=== PATIENT | male | born 1960 | race Caucasian/White ===

== ENCOUNTER 2018-10-13 02:52 | Emergency (ER) | payer OTHER ==
[~2018-10-13] VITALS: Ht 177.8 cm; Wt 77.1 kg
[2018-10-13] MEDS ORDERED: KETOROLAC TROMETHAMINE INJ 30 MG/ML VIAL IV ONE (04:00)
[2018-10-13] MEDS ORDERED: IV NS 0.9% 1,000 ML BAG IV ONE (04:00)
[2018-10-13] MEDS ORDERED: MORPHINE SULFATE INJ 2 MG/ML DISP.SYRIN IV ONE (04:00)
[2018-10-13] MEDS ORDERED: ONDANSETRON HCL/PF 4 MG/2 ML VIAL IVP ONE (04:00)
[2018-10-13] MEDS ORDERED: MORPHINE SULFATE INJ 4 MG/ML DISP.SYRIN ONE (04:10)
[2018-10-13] MEDS ORDERED: ONDANSETRON HCL/PF 4 MG/2 ML VIAL ONE (04:10)
[2018-10-13] MEDS ORDERED: KETOROLAC TROMETHAMINE 15 MG/ML VIAL ONE (04:10)
--- NOTE | 2018-10-13 04:10 | NUR ---
PT BIBSELF COMPLAINING OF ABDOMINAL PAIN WITH NAUSEA AND VOMITTING. PT DENIES CHEST PAIN, SOB, HEADACHE, DIZZINESS. PT IS AAOX4. RESPIRATIONS EVEN AND UNLABORED. SKIN WARM AND INTACT. NO ACUTE DISTRESS NOTED AT THIS TIME. PT AMBULATORY TO ER BED 9
--- NOTE | 2018-10-13 04:11 | NUR ---
IV INITIATED LEFT AC 18G. LABS DRAWN FROM SITE. CARE TECH AT BEDSIDE FOR COLLECTION. IV INTACT AND PATENT
[2018-10-13 04:14] LABS: BASOPHILS % (AUTO) 0.2 % (0.0-2.0); EOSINOPHILS % (AUTO) 0.7 % (0.0-6.0); HEMATOCRIT 44 % (39-51); LYMPHOCYTES # (AUTO) 1.8 /CMM (0.8-4.8); MEAN CORPUSCULAR HGB CONC 34 g/dl (31.0-36.0); MEAN CORPUSCULAR VOLUME 97 fL (80-96); MONOCYTES # (AUTO) 0.7 /CMM (0.1-1.30); NEUTROPHILS # (AUTO) 8.6 /CMM (1.8-8.9); NEUTROPHILS % (AUTO) 77.1 % (43.0-81.0); PLATELET COUNT (AUTO) 200 /CMM (150-450); RED BLOOD CELL COUNT(AUTO) 4.59 MIL/uL (4.5-6.0); WHITE BLOOD COUNT (AUTO) 11.2 K/uL (4.3-11.0)
--- NOTE | 2018-10-13 04:15 | NUR ---
RADIOLOGY AT BEDSIDE FOR CXR
[2018-10-13 04:21] LABS: CALCIUM, SERUM 9.3 mg/dL (8.5-10.1); CREATININE 1.2 mg/dL (0.6-1.3)
[2018-10-13 04:27] LABS: BILIRUBIN,DIRECT 0.1 mg/dL (0.0-0.2); BILIRUBIN,TOTAL 0.5 mg/dL (0.2-1.0); TOTAL PROTEIN, SERUM 7.5 g/dL (6.4-8.2)
--- NOTE | 2018-10-13 05:08 | NUR ---
Kain elena in [facility] - 10/13/18 at 0509 by JAMILA URINE COLLECTED CALLED LAB FOR
--- NOTE | 2018-10-13 05:09 | NUR ---
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
[2018-10-13 05:28] LABS: APPEARANCE,URINE CLEAR (CLEAR); BILIRUBIN,URINE NEGATIVE (NEGATIVE); BLOOD, URINE 3+ Ery/uL (NEGATIVE); COLOR,URINE YELLOW (YELLOW); KETONES,URINE NEGATIVE (NEGATIVE); LEUKOCYTE ESTERASE ,URINE NEGATIVE (NEGATIVE); NITRITE, URINE NEGATIVE (NEGATIVE); PROTEIN,URINE NEGATIVE (NEGATIVE); UGLUCOSE NEGATIVE (NEGATIVE); UROBILINOGEN,URINE 0.2 EU/dL (0.2)
--- NOTE | 2018-10-13 05:35 | NUR ---
PT BROUGHT BY RADIOLOGY FOR CT
--- NOTE | 2018-10-13 05:48 | NUR ---
PT RETURNED FROM CT
[2018-10-13 06:04] LABS: BACTERIA,URINE None seen /HPF (None Seen); RBC,URINE 21-50 /HPF (0-2); SQUAMOUS EPITHELIAL CELL,UR Few /HPF (None Seen); WBC,URINE 0-2 /HPF (0-3)
[2018-10-13 06:48] VITALS: BP 136/76
--- NOTE | 2018-10-13 06:49 | NUR ---
Patient discharged to home in stable condition. Written and verbal after care instructions given. Patient verbalizes understanding of instruction. IV removed. Catheter intact and site benign. Pressure and 4x4 applied to site. No bleeding noted. Pt ambulatory with a steady gait
== END 2018-10-13 06:50 | disposition home or self-care (01) ==
LOC: ER 02:56
DX: N20.1 Calculus of ureter (principal); E11.9 Type 2 diabetes mellitus without complications; Z79.84 Long term (current) use of oral hypoglycemic drugs
CPT/HCPCS: 36415; 71045; 74176; 80048; 80076; 81001; 83690; 85025; 85730; 96374; 96375; 99284; A4606; J1885; J2270; J2405; J7030; Z7610; 81000-TC